=== PATIENT | female | born 1980 | race Caucasian/White ===

== ENCOUNTER → 2020-06-20 | Outpatient (CLI) | payer BC ==
--- NOTE | 2020-06-20 07:51 | US ---
EXAMINATION TYPE: US abdomen complete DATE OF EXAM: 06/20/2020 COMPARISON: NONE CLINICAL HISTORY: R10.11 right upper quadrant pain. Pt states chest and RUQ pain EXAM MEASUREMENTS: Liver Length: 18.6 cm Gallbladder Wall: 0.2 cm CBD: 0.6 cm Spleen: 11.2 cm Right Kidney: 10.9 x 4.7 x 4.5 cm Left Kidney: 11.1 x 5.1 x 4.9 cm Pancreas: wnl Liver: Enlarged, heterogeneous Gallbladder: Multiple, mobile gallstones Evidence for sonographic Miranda's sign: Yes CBD: wnl Spleen: wnl Right Kidney: wnl, lower pole gassed out Left Kidney: wnl, lower pole gassed out Upper IVC: wnl Abd Aorta: wnl IMPRESSION: 1. The liver is enlarged and heterogeneous correlate for hepatic steatosis, diffuse hepatocellular di sease or hepatitis. 2. Cholelithiasis.
--- NOTE | 2020-07-02 09:46 | EM ---
Baseline rhythm is sinus. Patient had episodes of sinus tachycardia. Occasional PVCs noted. Patient complained of an episode of dizziness seemed to be correlating with episode of ventricular trigeminy. Rest of the episodes of PVCs are asymptomatic. Patient did not report any other symptoms. Final impression #1. Baseline rhythm is sinus. #2. Rare PVCs #3. An episode of dizziness and lightheadedness seemed to be correlating with episode of trigeminy. [facility]
== END ==
LOC: RADUSWWP 06:56
PROVIDERS: ATTEND Family Medicine
DX: R16.0 Hepatomegaly, not elsewhere classified (principal); K76.0 Fatty (change of) liver, not elsewhere classified; K75.9 Inflammatory liver disease, unspecified
CPT/HCPCS: 76700; 93270

== ENCOUNTER → 2021-08-25 | Outpatient (CLI) | payer BC ==
[2021-08-25 15:03] LABS: Basophils # (A) 0.1 k/uL (0-0.2); Basophils % (A) 1 %; Eosinophils # (A) 0.2 k/uL (0-0.7); Eosinophils % (A) 2 %; HCT 45.8 % (34.0-46.0); HGB 14.6 gm/dL (11.4-16.0); Lymphocytes # (A) 2.4 k/uL (1.0-4.8); Lymphocytes % (A) 23 %; MCH 30.9 pg (25.0-35.0); MCHC 31.9 g/dL (31.0-37.0); MCV 96.8 fL (80.0-100.0); Mean Platelet Volume 7.5; Monocytes # (A) 0.5 k/uL (0-1.0); Monocytes % (A) 4 %; Neutrophils # (A) 7.4 k/uL (1.3-7.7); Neutrophils % (A) 70 %; Platelet Count 266 k/uL (150-450); RBC 4.73 m/uL (3.80-5.40); WBC 10.6 k/uL (3.8-10.6)
[2021-08-25 15:20] LABS: ALT 13 U/L (4-34); AST 17 U/L (14-36); African American GFR (CKD) >90 (>60 ml/min/1.73 sqM); Albumin 4.8 g/dL (3.5-5.0); Albumin/Globulin Ratio 1.7; Alkaline Phosphatase 75 U/L (38-126); Amylase 74 U/L (30-110); Anion Gap 8 mmol/L; Blood Urea Nitrogen 10 mg/dL (7-17); Calcium 9.4 mg/dL (8.4-10.2); Carbon Dioxide 30 mmol/L (22-30); Chloride 103 mmol/L (98-107); Globulin 2.9 g/dL; Glucose 91 mg/dL (74-99); Lipase 117 U/L (23-300); Non-African American GFR(CKD) 88 (>60 ml/min/1.73 sqM); Potassium 4.4 mmol/L (3.5-5.1); Sodium 141 mmol/L (137-145); Total Bilirubin 0.5 mg/dL (0.2-1.3); Total Protein 7.7 g/dL (6.3-8.2)
--- NOTE | 2021-08-25 17:12 | CT ---
EXAMINATION TYPE: CT abdomen pelvis w con CT DLP: 1134 mGycm, Automated exposure control for dose reduction was used. DATE OF EXAM: 08/25/2021 4:41 PM COMPARISON: None. CLINICAL INDICATION:Female, 41 years old with history of Right Lower quadrant pain R10.31. TECHNIQUE: Standard CT of the abdomen and pelvis without IV or oral contrast. Lack of IV or oral co ntrast limits evaluation of solid and hollow organ viscera. Coronal and sagittal reformats were perfo rmed. FINDINGS: LOWER CHEST: 5 mm left lower lobe pulmonary nodule image 2 series 3. 4 mm nodule image 6 series 3 in the middle lobe. ABDOMEN LIVER: Unremarkable GALLBLADDER AND BILE DUCTS: The gallbladder is surgically absent. PANCREAS: Unremarkable. SPLEEN: Unremarkable. ADRENAL GLANDS: Unremarkable. KIDNEYS AND URETERS: No evidence of hydronephrosis or renal calculus. The ureters are unremarkable. PELVIS BLADDER: Unremarkable REPRODUCTIVE: Unremarkable. ABDOMEN & PELVIS STOMACH AND BOWEL:Scattered diverticula are noted throughout the colon. No evidence of bowel obstruct ion. The appendix is visualized and within normal limits PERITONEUM: No evidence of pneumoperitoneum or free fluid. VASCULATURE: No evidence of aortic aneurysm. MUSCULOSKELETAL: No acute osseous abnormalities. Mild disc degeneration changes at L5-S1. LYMPH NODES: No gross evidence for lymphadenopathy. SOFT TISSUE/ABDOMINAL WALL: Fat filled umbilical hernia measuring 1.5 cm at the neck. IMPRESSION: 1. No evidence for acute process within the right lower quadrant. Normal appendix and no evidence of hydronephrosis. 2. Colonic diverticulosis.
== END | disposition home or self-care (01) ==
LOC: RADCTMAIN 14:32
PROVIDERS: ATTEND Family Medicine
DX: K57.30 Diverticulosis of large intestine without perforation or abscess without bleeding (principal)
CPT/HCPCS: 80053; 82150; 83690; 85025; 74177; 36415; Q9967